=== PATIENT | male | born 2000 | race Native Hawaiian/Other Pacific Islander ===

== ENCOUNTER 2024-06-27 18:24 | Emergency (ER) | payer MEDICAID ==
[~2024-06-27] VITALS: Ht 180.3 cm; Wt 139.9 kg
[2024-06-27 18:28] VITALS: BP 160/96; PULSE 83; RESP 20; O2SAT 96
[2024-06-27] MEDS ORDERED: VALA1TAB34 PO (18:54)
[2024-06-27] MEDS ORDERED: PRED20TA2 PO (18:54)
--- NOTE | 2024-06-27 18:56 | ED.PDOC ---
HPI (NEURO) HPI Comments 23-year-old male patient with no past medical history and past surgical history presented with complaints of left-sided facial numbness associated with left- sided facial weakness, facial deviation, unable to close the left eye completely since 1500 hours yesterday. He denied any complaints of any other motor/sensory deficit. He denied any complaints of chest pain, shortness of breath, dizziness, headache, nausea, vomiting, orthopnea, PND, palpitations, diarrhea, constipation. Past medical history Denied Past surgical history Denied Medication history Denied Allergic history No known allergies Social history Active smoker, two packs per week, denied alcohol, denied any other drugs Family history Denied any history of cardiac/neurological on any other medical history related to the above illness Review of system As explained in the HPI Examination General Appearance: Alert, Oriented X3, Cooperative, No acute distress HEENT: EOMI Respiratory: Clear to auscultation, Normal air movement Cardiovascular: Regular rate, Normal S1, Normal S2 Abdominal: Normal bowel sounds Extremities: No cyanosis, No edema, Normal pulses, No tenderness/swelling Skin: No rashes, No breakdown Neurological exam : upper and lower Left-sided facial weakness, with drooping of the angle of the mouth on the left side, other Cranial nerves are grossly intact, no sensory and motor deficit, no nystagmus, normal gait Chief Complaint: Face pain Time Seen by MD: 18:30 Primary Care Provider: NONE Mode of Arrival: Ambulatory Differential Diagnosis (SZ) CVA: Russell's Palsy, CVA X-Ray, Labs, Meds, VS Vital Signs Date Time Temp Pulse Resp B/P (MAP) Pulse Ox O2 Delivery O2 Flow Rate FiO2 06/27/24 18:28 98.3 83 20 160/96 (117) 96 X-Ray, Labs, Meds, VS Comment Addendum by Dr. Yue Benton: Patient re-evaluated by me. Demonstrated left facial droop/weakness, inability to raise the left eyebrow, mild left-sided ptosis. No other focal neurologic deficit on exam. Findings consistent with russell palsy. Case discussed with resident, agree with assessment and plan. Time of 1ST Reevaluation: 18:51 Reevaluation 1ST: Unchanged Patient Education/Counseling: Diagnosis, Treatment Family Education/Counseling: No Family Present Departure 1 Departure Time of Disposition: 18:51 Impression: Primary Impression: Russell palsy Disposition: 01 HOME / SELF CARE / HOMELESS Condition: Stable Additional Instructions: Additional discharge instructions: You MUST follow-up with your primary care/family doctor in 1 to 2 days. If you are unable to see your primary care/family doctor, please return to our emergency room for re-assessment and re-evaluation in 1 to 2 days. Return to the emergency room here in our facility or to the nearest ER [facility] if your symptoms change or worsen. CONSULTATIONS: you MUST Follow-up for consultation as soon as possible with: Neurologist within 1 week. e-Prescriptions Valacyclovir HCl (Valacyclovir HCl) 1 Gm Tab 1 GM PO TID for 7 Days, #21 TAB Prov: SHAY LOPEZ RESIDENT 06/27/24 Prednisone (Prednisone) 20 Mg Tab 80 MG PO DAILY for 7 Days, #28 MG Prov: SHAY LOPEZ RESIDENT 06/27/24 Discharged With: Self SHAY LOPEZ Jun 27, 2024 18:56 NIKA VARGAS MD Jun 27, 2024 23:06
== END 2024-06-28 00:08 | disposition home or self-care (01) ==
LOC: ER 18:24
DX: G51.0 Bell's palsy (principal)